=== PATIENT | male | born 1945 | race Caucasian/White ===

== ENCOUNTER 2023-05-14 08:40 | Outpatient (CLI) | payer MEDICARE | END 2023-05-14 08:41 | disposition home or self-care (01) | LOC: CSHCT 08:40 | PROVIDERS: ATTEND Physician Assistant Medical | DX: K86.81 Exocrine pancreatic insufficiency (principal); K52.9 Noninfective gastroenteritis and colitis, unspecified | CPT/HCPCS: 74177 ==